=== PATIENT | female | born 1955 | race Caucasian/White ===

== ENCOUNTER 2017-03-12 12:48 | Outpatient (CLI) | payer OTHER | END 2017-03-12 12:49 | disposition home or self-care (01) | LOC: DTY/OP 12:48 | PROVIDERS: ATTEND Family Medicine | DX: E16.2 Hypoglycemia, unspecified (principal) | CPT/HCPCS: 97802 ==

== ENCOUNTER 2017-12-30 15:50 | Outpatient (CLI) | payer OTHER ==
[~2017-12-30 15:50] MED LIST: Iopamidol 370 76% 100 ML VIAL ONE
--- NOTE | 2017-12-30 19:08 | CT ---
CT ARTERIOGRAM HEAD WITH IV CONTRAST AND 3D MIP IMAGING CT BRAIN WITH AND WITHOUT IV CONTRAST: 12/30/17 HISTORY: Diplopia. Dizziness and headache. FINDINGS: There is no evidence of acute intracranial hemorrhage or infarct. Ventricles appear normal in size, s hape and position. There is no mass effect, shift of midline structures, or abnormal areas of contras t enhancement. The visualized paranasal sinuses remain well aerated. Good contrast flow throughout each internal carotid system and the vertebrobasilar system. [place] is intact. No focal stenosis, embolus, or aneurysm. IMPRESSION: No significant abnormalities are demonstrated. POS: [facility]
== END 2017-12-30 15:51 | disposition home or self-care (01) ==
LOC: SCSCT 15:50
PROVIDERS: ATTEND Family Medicine
DX: H53.2 Diplopia (principal)
CPT/HCPCS: 70496; 82565

== ENCOUNTER 2017-12-30 16:54 | Observation (INO) | payer OTHER ==
[2017-12-30] MEDS ORDERED: Proparacaine 0.5% Opth 15 ML BOT ONE (17:16)
[2017-12-30] MEDS ORDERED: Fluorescein Opthalmic Strip ONE (17:16)
[2017-12-30 17:45] LABS: #Basophils 0.1 thou/uL (0.0-0.2); #Eosinphils 0.2 thou/uL (0.0-0.7); #Lymphocytes 2.4 thou/uL (1.20-3.40); #Monocytes 0.6 thou/uL (0.11-0.59); %Basophils 0.7 % (0.0-1.0); %Eosinophils 2.2 % (0.0-10.0); %Lymphocytes 29.5 % (21.0-51.0); %Monocytes 7.8 % (0.0-10.0); %Neutrophils 59.8 % (42.0-75.0); Hemoglobin 15.8 g/dL (12.0-16.0); Mean Corpuscular HGB CONC 32.2 g/dL (32.0-36.0); Mean Corpuscular Hemoglobin 30.4 pg (27.0-31.0); Mean Corpuscular Volume 94.5 fL (78.0-98.0); Platelet Count 217 thou/uL (130-400); RBC Distribution Width 12.1 % (11.5-14.5); White Blood Cell (WBC) Count 8.3 thou/uL (4.8-10.8)
[2017-12-30 17:58] LABS: Anion Gap 16 mmol/L (10-20); BUN (Urea Nitrogen) 16 mg/dL (9.8-20.1); Calc. Creatinine Clearance 0 mL/min (70-130); Calcium 9.4 mg/dL (7.8-10.44); Carbon Dioxide 22 mmol/L (23-31); Chloride 105 mmol/L (98-107); Estimated GFR-MDRD 66; Glucose 94 mg/dL (80-115); Potassium 4.4 mmol/L (3.5-5.1); Sodium 139 mmol/L (136-145)
[2017-12-30] MEDS ORDERED: Ketorolac Tromethamine 30 MG/ML VIAL ONE (18:17)
[2017-12-30 21:24] VITALS: BMI 22.3
[2017-12-30] MEDS ORDERED: Artificial Tear Sol 15 ML BOT EA EYE PRN (21:27)
[2017-12-30] MEDS ORDERED: Temazepam 15 MG CAP PO SCH (21:30)
[2017-12-30] MEDS ORDERED: Diabetic Tussin 200 MG/10 ML UDCUP PO PRN (21:51)
[2017-12-30] MEDS: Acetaminophen 325 MG TAB PO PRN (21:51)
[2017-12-30] MEDS ORDERED: Melatonin 3 MG TAB PO SCH (22:00)
[2017-12-30] MEDS: Vancomycin HCl 1.25 GM in Sodium Chloride 0.9% 250 ML 250 ML IVPB SCH (22:41)
[2017-12-30] MEDS ORDERED: hydrALAZINE 20 MG/ML VIAL SLOW IVP PRN (23:10)
[2017-12-30] MEDS ORDERED: Ondansetron HCl/PF 4 MG/2 ML Vial IVP PRN (23:10)
[2017-12-30] MEDS ORDERED: Labetalol HCl 100 MG/20 ML VIAL SLOW IVP PRN (23:10)
[2017-12-30] MEDS ORDERED: Ondansetron ODT 4 MG TAB PO PRN (23:10)
[2017-12-31 05:26] LABS: #Eosinphils 0.3 thou/uL (0.0-0.7); #Lymphocytes 2.7 thou/uL (1.20-3.40); #Monocytes 0.7 thou/uL (0.11-0.59); #Neutrophils 3.9 thou/uL (1.40-6.50); %Basophils 0.4 % (0.0-1.0); %Eosinophils 4.3 % (0.0-10.0); %Lymphocytes 35.4 % (21.0-51.0); %Neutrophils 50.9 % (42.0-75.0); Hemoglobin 13.9 g/dL (12.0-16.0); Mean Corpuscular HGB CONC 32.1 g/dL (32.0-36.0); Mean Corpuscular Hemoglobin 31.3 pg (27.0-31.0); Mean Corpuscular Volume 97.7 fL (78.0-98.0); Mean Platelet Volume 7.8 fL (7.4-10.4); Platelet Count 220 thou/uL (130-400); RBC Distribution Width 11.6 % (11.5-14.5); Red Blood Cell (RBC) Count 4.43 mill/uL (4.20-5.40); White Blood Cell (WBC) Count 7.7 thou/uL (4.8-10.8)
[2017-12-31 05:34] LABS: Anion Gap 12 mmol/L (10-20); BUN (Urea Nitrogen) 20 mg/dL (9.8-20.1); Calc. Creatinine Clearance 68 mL/min (70-130); Calcium 8.8 mg/dL (7.8-10.44); Carbon Dioxide 23 mmol/L (23-31); Cardiac Risk 4.6 (Less than 4.5); Chloride 108 mmol/L (98-107); Cholesterol 165 mg/dl (< 200 Desired); Estimated GFR-MDRD 74; Glucose 95 mg/dL (80-115); HDL Cholesterol 36 mg/dL (>60 Neg Risk); LDL Cholesterol, Calculated 91 mg/dL; Potassium 4.2 mmol/L (3.5-5.1); Sodium 139 mmol/L (136-145); Triglycerides 192 mg/dL (Less than 150)
[2017-12-31] MEDS: Acetaminophen 325 MG TAB PO PRN (09:18)
[2017-12-31] MEDS: Enoxaparin Sodium 40 MG/0.4 ML SYRINGE SC SCH (09:19)
[2017-12-31] MEDS: Aspirin 81 mg Enteric Coated Tablet PO SCH (09:19)
[2017-12-31] MEDS: Estradiol 1 MG TAB PO SCH (09:19)
--- NOTE | 2017-12-31 10:35 | HP ---
CHIEF COMPLAINT: Double vision and pain in left eye. HISTORY OF PRESENT ILLNESS: This is a 62-year-old female with past medical history of neuropathy, hy perlipidemia, presenting with diplopia, which has been going on for the past 4 days prior to the day of admission. Per the patient, her diplopia started on Friday and she started to eventually develope d left-sided eye pain, which has been worsening. Patient saw her drafter civil (cad) and the patient had normal eye exams. At this point, the patient states that her left eye pain is about 10/10. She is not able to open her eye and the eye is teary. The patient states that she feels like the pain is on the back of the eye, and with movement, to the left side; patient always gets severe pain with movem ent. The patient also states that when she closed one eye and she looks an object she is able to vis ualize the object as a single object, but when she opens both eyes she sees double. Patient's sympto ms have been ongoing and states that now she feels like "something is really wrong." Patient also rubalcava s associated symptoms of cough, which started a couple of days ago. Per the , the patient has always had a cough, but now the cough has been worsened. Patient denies having any productive sputu m with her cough. The patient denies any headaches, shortness of breath, chest pain, palpitations, a bdominal pain. REVIEW OF SYSTEMS: Positive for diplopia and left eye pain. Otherwise as documented in the HPI, all other systems were reviewed and are negative. FAMILY HISTORY: Reviewed and noncontributory at today's visit. PAST MEDICAL HISTORY: Hypoglycemia, lower extremity neuropathy, hyperlipidemia. PAST SURGICAL HISTORY: Appendectomy, right knee replacement, tonsillectomy. PSYCHIATRIC HISTORY: Depression. SOCIAL HISTORY: Denies alcohol use. Denies illicit drug use. Denies any smoking history. ALLERGIES: No known drug allergies. CURRENT MEDICATIONS: 1. The patient is on estradiol. 2. Lipitor 40 mg. 3. Metoprolol 200 mg. PHYSICAL EXAMINATION: VITAL SIGNS: Blood pressure is 142/89, pulse of 78, respiratory rate of 16, temperature of 97.4, O2 saturation of 98. GENERAL: The patient is alert, oriented x3, speaking in full sentences, does not appear to be in any acute distress. HEENT: Normocephalic, atraumatic. Pupils are equally round and reactive to light. Extraocular move ments are intact. Patient does have diplopia when patient sees from both eyes. Patient has pain in the left eye when patient looks to the left. Patient has a teary left eye. NECK: Supple, full range of motion. Trachea midline. LUNGS: Clear to auscultation bilaterally. No wheezing, no rales, no rhonchi is appreciated. CARDIOVASCULAR: Positive S1 and S2, regular rate and rhythm. No murmurs, no gallops, no rubs apprec iated. ABDOMEN: Soft, nontender, nondistended. No peritoneal signs, no rigidity, no guarding. EXTREMITIES: 5/5 upper extremity strength and 5/5 lower extremity strength, good pulses bilaterally in the upper extremities and lower extremities. NEUROLOGIC: Cranial nerves II-XII grossly intact. No neurologic deficits noted. The patient has go od gait. SKIN: Warm, dry, and intact. No rashes seen. EKG: Patient has normal sinus rhythm. LABORATORY DATA: WBC 8.2, hemoglobin 16.8, hematocrit is 49.2, platelet count 217. Sodium 139, pota ssium 4.4, chloride 105, carbon dioxide of 22, anion gap of 16, BUN 16, creatinine 0.86, GFR 56, gluc ose is 94, calcium is 9.4. Triglycerides 102. Cholesterol 165. LDL is 91, HDL cholesterol 36, hear t disease risk ratio is 4.6. ASSESSMENT AND PLAN: This is a 62-year-old patient being admitted for, 1. Diplopia, etiology unclear at this time, but differential diagnosis includes multiple sclerosis, dry age-related macular disease, third nerve palsy, trochlear nerve palsy. At this point, we are goi ng to get MRI of the head, MRA of the neck, and we are also going to follow up on morning labs. 2. Left eye pain, etiology unclear, but differential diagnosis includes orbital cellulitis, acute an gle glaucoma. Per the patient, she recently saw her drafter civil (cad) and drafter civil (cad) measured her intraorbital eye pressure, which was negative, and patient's eye exam was negative. So, at this poi nt, orbital cellulitis is high on our differential. We have ordered MRI of the head. We will follow up on the results. We will start patient on vancomycin empirically, and we will give patient artifi cial eye drops and we will monitor the patient very closely. 3. Diplopia, rule out stroke. MRI has been ordered. We will follow up MRI to rule out any ischemic stroke. We started patient on aspirin and atorvastatin. We will monitor the patient closely. 4. History of depression, currently stable. We will monitor the patient. 5. Deep venous thrombosis and gastrointestinal prophylaxis.
[2017-12-31] MEDS: HYDROcodone/Acetaminophen 7.5/325 mg Tablet PO PRN ×3 (10:50→21:09)
[2017-12-31] MEDS ORDERED: Diazepam 5 MG TAB PO SCH (11:00)
[2017-12-31] MEDS ORDERED: Lorazepam 2 MG/ML VIAL SLOW IVP SCH (15:15)
--- NOTE | 2017-12-31 18:43 | PRG ---
DATE OF SERVICE: 12/31/2017 SUBJECTIVE: The patient continues to have persistent symptoms of pain in the left eye which she now identifies as being in the medial upper eye area about the 10-11 o'clock position. She also has some increased pain with left lateral gaze, but she does not have any pain in any other direction. She i s tender over the identified area slightly. There are no masses palpable there. She is also feeling a bit of tenderness in the left mastoid area and the patient does report that she does have a histor y of both shingles and Hudson's palsy in the past, concerning for possible inability to generate a reas onable immune response to the zoster virus. OBJECTIVE: NECK: Supple and symmetric. CARDIOVASCULAR: Regular rate and rhythm. LUNGS: Clear. NEUROLOGIC: She is otherwise fully intact. VITAL SIGNS: T-max today is 99.0, pulse 63, respirations 18, O2 sat 99% on room air, BP 133/68. IMAGING: Her MRI of the brain and MRA of the neck are both negative. Echocardiogram reveals an EF o f 50%-55% with grade I diastolic dysfunction. ASSESSMENT AND PLAN: I had a long conversation with the patient and her family regarding the workup and the findings. 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 She has been rec eiving vancomycin. We will continue with that and add acyclovir and a couple doses of Solu-Medrol, w hich I believe will be somewhat helpful. All of the questions were answered. I explained that we rubalcava ve as effectively is reasonably can be done ruled out mass lesion or space occupying lesion such as t umors or abscess. There is no evidence of aneurysm, strokes, or other ischemic events and no specifi c evidence of inflammatory changes. There are no lesions to suggest multiple sclerosis and it is lik rachid that optic neuritis would have been picked up on the initial exam by the final expense agent.
--- NOTE | 2017-12-31 18:50 | MRI ---
BRAIN MRI WITH AND WITHOUT CONTRAST: 12/31/17 INDICATION: Left eye pain. Diplopia. FINDINGS: There is normal sized ventricular system. No evidence of acute territorial infarction, intracranial m ass effect or midline shift. There is no pathologic intra-axial enhancement or evidence of significa nt intracranial hemorrhage susceptibility. There are a few punctate signal abnormality foci of the ce rebral hemispheres that may be related to minimal chronic ischemic disease. IMPRESSION: No evidence of acute intracranial abnormality. POS: [facility]
--- NOTE | 2017-12-31 18:59 | MRI ---
MR ANGIOGRAM OF THE NECK: 12/31/17 HISTORY: Pain. Double vision. COMPARISON: None. TECHNIQUE: MR angiogram of the neck is performed utilizing axial 2D [id number] imaging, coronal postcontrast imaging. Maximum intensity projection images are submitted for interpretation. FINDINGS: Axial 2D [id number] images demonstrate symmetric flow related signal in the cervical carotid and vertebral arteries. The right vertebral artery is dominant. Coronal postcontrast images demonstrate appropriate enhancement and luminal diameter of the aortic a rch. RIGHT CAROTID: There is appropriate enhancement and luminal diameter of the origin of the right carotid artery, broussard tid bifurcation, and internal carotid artery. No significant stenosis. LEFT CAROTID: There is appropriate enhancement and luminal diameter of the origin of the left carotid artery. The l eft common carotid, carotid bifurcation and internal carotid artery have appropriate enhancement and luminal diameter. Both cervical vertebral arteries are patent throughout their course in the neck. The right vertebral artery is dominant. Visualized subclavian arteries have appropriate enhancement and luminal diameter. IMPRESSION: Unremarkable MR angiogram of the neck. POS: [facility]
[2017-12-31] MEDS ORDERED: Atorvastatin Calcium 40 MG TAB PO SCH ×2 (21:00)
[2017-12-31] MEDS: Vancomycin HCl 1.25 GM in Sodium Chloride 0.9% 250 ML 250 ML IVPB SCH (21:13)
[2018-01-01] MEDS: HYDROcodone/Acetaminophen 7.5/325 mg Tablet PO PRN ×3 (00:45→10:40)
[2018-01-01] MEDS: Aspirin 81 mg Enteric Coated Tablet PO SCH (08:54)
[2018-01-01] MEDS: Estradiol 1 MG TAB PO SCH (08:54)
[2018-01-01] MEDS: Enoxaparin Sodium 40 MG/0.4 ML SYRINGE SC SCH (08:54)
--- NOTE | 2018-01-01 10:00 | PRG ---
DATE OF SERVICE: 01/01/2018. SUBJECTIVE: The patient reports she feels about the same this morning. She still has the double vision and some discomfort in the left eye. She reports that the pain in her eye really did not start until 2-1/2 days after the double vision started. She typically closes her left eye in order to have amount of vision. She can actually use either eye and have the same amount of vision. She just seems to be right eye dominant. PHYSICAL EXAMINATION: VITAL SIGNS: Temperature 98.1, pulse 70, respirations 18, O2 sat 94% on room air, blood pressure 101/60. GENERAL: Age appropriate female in no distress. She is awake, alert, oriented , pleasant and cooperative. HEENT: Reveals a normal gross appearing eyes. She can close her right eye and look directly forward and when she opens her left eye, her left eye will correct medially. HEART: Regular rate and rhythm. LUNGS: Clear. IMPRESSION AND PLAN: Diplopia with right medial upper limbus discomfort. Etiology is unclear. She has had a normal eye exam. She has had normal MRI/ MRA of the brain, sed rate, CRP are normal. Other labs are normal. Concerning for idiopathic orbital myositis and also concerning for possible viral etiology , she is on vancomycin, acyclovir, and had a couple of doses of Solu-Medrol last night, so far nothing seems to have changed the situation. I believe we have reasonably ruled out many of the concerning potential etiologies. Therefore, anticipate waiting on evaluation from Neurology today. If they agree , then we likely can discharge the patient for outpatient followup. She has a connection with neuroophthalmologist and she will be working on her and try to help arrange that type of follow up herself. GLADYS
[2018-01-01 11:56] VITALS: BP 92/55; TEMP 98.8
--- NOTE | 2018-01-02 15:26 | DIS ---
DATE OF ADMISSION: 12/30/2017 DATE OF DISCHARGE: 01/01/2018 DISCHARGE DIAGNOSES: 1. Diplopia. 2. Left eye pain. HISTORY: This patient is a 62-year-old female who presented via the emergency department. The patie nt reported having several days of diplopia in a couple of days of pain in her left eye. The patient had no antecedent injuries or changes to which this was attributable. She had no specific headache. She had seen her eye doctor and had a normal exam. The patient subsequently had observation admiss [facility]. HOSPITAL COURSE: The patient's stay persistent throughout her hospital stay; however, she did underg o an MRI of the brain, as well as an MRA and an echocardiogram. All of these essentially remained un remarkable with that. The patient was given doses of Solu-Medrol and started on acyclovir for possib le viral etiology. She had been started on vancomycin at the time of admission in order to help rule out any sort of cellulitic or to cover any cellulitic changes before it could be ruled out. Once th e patient had negative workup and failed to respond to steroids or antivirals, we awaiting a consulta tion by Neurology; however, patient had a contact with a neuro-mobile crane operator and she was working on getting that established as well. Later on the day of the discharge, I was contacted by nursing and told the patient had made arrangements for outpatient followup the following day of the neuro-ophtha lmologist and preferred not to stay and wait for our Neurology evaluation. Therefore, the patient wa s subsequently discharged. PHYSICAL EXAMINATION: VITAL SIGNS: On the day of discharge, temperature is 98.8, pulse 76, respirations 20, O2 sat 99% on room air, blood pressure 92/55. GENERAL: She was awake, alert, oriented, pleasant, cooperative. HEENT: The patient typically set with 1 eye closed in order to minimize the diplopia. She had sligh t tenderness to palpation in the left upper medial limbus area. There were no anatomic abnormalities identified or palpable on exam and she had no other neurological symptoms. It was felt the patient was likely suffering from ocular myositis. DISPOSITION: The patient is discharged and she is to have regular diet and her activity level is as tolerated. She will remain on acyclovir 800 mg p.o. q.i.d. and she will resume her usual metoprolol, estradiol, and atorvastatin. She is to follow up with Sonny Almanza and she is to follow up with the neuro-mobile crane operator and she had arranged for herself. She can return to the emergency department at any time.
== END 2018-01-01 13:12 | disposition home or self-care (01) ==
LOC: SCSER 16:54 → 2SE 17:00
PROVIDERS: ADMIT Family Medicine; ATTEND Family Medicine
DX: H53.2 Diplopia (principal); H57.12 Ocular pain, left eye; E78.5 Hyperlipidemia, unspecified; G62.9 Polyneuropathy, unspecified; F32.9 Major depressive disorder, single episode, unspecified; Z79.899 Other long term (current) drug therapy
CPT/HCPCS: 36415; 36416; 70496; 70549; 70553; 80048; 80061; 82565; 85025; 85652; 86140; 93005; 93306; 96365; 96366; 96367; 96372; 96374; 96375; 96376; G0378; J0133; J1650; J1885; J2060; J2920; J3370; J7050

== ENCOUNTER 2018-01-24 14:55 | Emergency (ER) | payer OTHER | END 2018-01-24 15:15 | disposition home or self-care (01) | LOC: SCSER 14:55 | DX: M79.631 Pain in right forearm (principal); E78.5 Hyperlipidemia, unspecified; F32.9 Major depressive disorder, single episode, unspecified; Z79.899 Other long term (current) drug therapy | CPT/HCPCS: 99283 ==

== ENCOUNTER 2018-10-14 14:57 | Outpatient (CLI) | payer MEDICARE ==
--- NOTE | 2018-10-14 15:19 | MMO ---
Bilateral MAMMO Bilat Screen [facility]DI. CLINICAL HISTORY: Patient is 63 years old and is seen for screening. The patient has the following family history of breast cancer: mother, at age 80. The patient has no personal history of cancer. VIEWS: The views performed were: bilateral craniocaudal and bilateral mediolateral oblique. FILMS COMPARED: The present examination has been compared to prior imaging studies performed at [facility] on 07/29/2016 and 01/30/2017, and at [facility] on 06/07/2015 and 06/14/2015. This study has been interpreted with the assistance of computer-aided detection. MAMMOGRAM FINDINGS: The breasts are heterogeneously dense, which could obscure a lesion on mammography. There is an equal density nodule measuring 7 millimeters with obscured margins seen in the central region of the right breast. In the left breast, there are no suspicious masses, calcifications or areas of architectural distortion. IMPRESSION: NODULE IN THE RIGHT BREAST REQUIRES ADDITIONAL EVALUATION. SPOT COMPRESSION IS RECOMMENDED. AN ULTRASOUND EXAM IS RECOMMENDED IF NEEDED. ACR BI-RADS Category 0 - Incomplete: Need additional imaging evaluation. [facility] will notify the patient of the need for additional imaging services. MAMMOGRAPHY NOTE: 1. A negative mammogram report should not delay a biopsy if a dominant of clinically suspicious mass is present. 2. Approximately 10% to 15% of breast cancers are not detected by mammography. 3. Adenosis and dense breasts may obscure an underlying neoplasm. Reported by: NORMA CALLOWAY MD Electonically Signed: [id number]
== END 2018-10-14 14:58 | disposition home or self-care (01) ==
LOC: SCSMAMMO 14:57
PROVIDERS: ATTEND Family Medicine
DX: Z12.31 Encounter for screening mammogram for malignant neoplasm of breast (principal); N63.10 Unspecified lump in the right breast, unspecified quadrant; Z80.3 Family history of malignant neoplasm of breast
CPT/HCPCS: 77067

== ENCOUNTER 2019-07-05 15:34 | Outpatient (CLI) | payer MEDICARE ==
--- NOTE | 2019-07-05 15:57 | RAD ---
TWO VIEWS RIGHT SHOULDER: DATE: 07/05/2019. COMPARISON: None. HISTORY: Scapular pain. FINDINGS: There is mild degenerative change involving the right AC joint. No widening of the AC or CC interspa ce. No acute fracture or dislocation. IMPRESSION: No acute osseous abnormality. POS: [facility]
--- NOTE | 2019-07-05 16:33 | RAD ---
PA AND LATERAL CHEST: History: Cough, back pain. FINDINGS: The heart size is normal. The aorta is tortuous. The lungs are well expanded without lobar consolidat ion, pneumothoraces, or pleural effusions. There are degenerative changes in the spine. IMPRESSION: No radiographic evidence of acute cardiopulmonary process. POS: [facility]
== END 2019-07-05 15:35 | disposition home or self-care (01) ==
LOC: SCSRAD 15:34
PROVIDERS: ATTEND Family Medicine
DX: M89.8X1 Other specified disorders of bone, shoulder (principal)
CPT/HCPCS: 71046

== ENCOUNTER 2019-08-27 12:29 | Outpatient (CLI) | payer MEDICARE, OTHER ==
--- NOTE | 2019-08-27 17:23 | MRI ---
MRI BRAIN WITH AND WITHOUT CONTRAST: DATE: 08/27/2019 HISTORY: 64-year-old female with TIA, family history of aneurysm, intractable headache, diplopia TECHNIQUE: Multiplanar, multisequence MRI of the brain obtained pre and post IV injection of gadolinium based co ntrast agent. FINDINGS: The ventricles are normal in size and configuration. There is no midline shift or any other evidence of mass effect. There is no extra-axial fluid collection. Single punctate focus of T2 hyperintensity in left frontal white matter consistent with minimal chronic ischemic white matter magdi nge, less than typical for this age group. There is otherwise no intra-axial signal abnormality, abnormal enhancement, mass, recent hemorrhage, or restricted diffusion. IMPRESSION: Normal
--- NOTE | 2019-08-27 17:25 | MRI ---
MRA magnetic resonance angiogram head noncontrast: 08/27/2019 HISTORY: 64-year-old female with intractable headache, TIA, and diplopia. Family history of intracranial aneur ysm. TECHNIQUE: 3-D [id number] MRA in multiple axial slabs through [place] of [place]. Source images and 3-D MIP re constructions evaluated. FINDINGS: Left vertebral artery is diminutive and terminates in PICA. The posterior and anterior circulation ap pear normal, with normal caliber. No evidence of aneurysm larger than 3 mm. Patent right posterior communicating artery. IMPRESSION: Normal
--- NOTE | 2019-08-27 17:31 | MRI ---
MRA magnetic resonance angiogram neck noncontrast: 08/27/2019 HISTORY: 64-year-old female with TIA, visual change diplopia, headache, family history of intracranial aneurys m TECHNIQUE: 3-D [id number] in multiple axial slabs from aortic arch to skull base. Source images and 3-D MIP reconstructions. FINDINGS: Proximal portions of bilateral vertebral arteries are difficult to visualize. Left vertebral arteries diminutive, and the right vertebral artery is dominant. Of the visualized portions, no focal high-grade stenosis identified. No significant stenosis of brachiocephalic, bilateral common carotid, or bilateral internal carotid, arteries. IMPRESSION: Negative
--- NOTE | 2019-08-27 17:37 | MRI ---
MRI neck with and without contrast: 08/27/2019 HISTORY: 64-year-old female with temporal arteritis M 31.6 FINDINGS: There is severe degenerative disc disease at C6-7. There is left-sided high-grade facet DJD at C4-5, resulting in mild grade 1 anterolisthesis of C4 on C5. No abnormal signal, abnormal enhancement, mass, or abnormal fluid collection, identified involving the parapharyngeal, perivertebral, retrophar yngeal, parotid, carotid, posterior cervical, visceral, submandibular, or systems project manager, spaces. No cervical lymphadenopathy identified. IMPRESSION: 1. Cervical spondylosis, including severe degenerative disc disease at C6-7. 2. Otherwise negative.
== END 2019-08-27 12:30 | disposition home or self-care (01) ==
LOC: SCSMRI 12:29
PROVIDERS: ATTEND Orthopaedic Surgery
DX: G45.9 Transient cerebral ischemic attack, unspecified (principal); H53.2 Diplopia; H47.393 Other disorders of optic disc, bilateral; R51 Headache; M31.6 Other giant cell arteritis; Z82.49 Family history of ischemic heart disease and other diseases of the circulatory system; M47.812 Spondylosis without myelopathy or radiculopathy, cervical region; M50.323 Other cervical disc degeneration at C6-C7 level
CPT/HCPCS: 70543; 70544; 70547; 70553; 82565

== ENCOUNTER 2022-02-04 08:25 | Outpatient (CLI) | payer MEDICARE, OTHER | END 2022-02-04 08:26 | disposition home or self-care (01) | LOC: SCSMRI 08:25 | PROVIDERS: ATTEND Ophthalmology | DX: M54.81 Occipital neuralgia (principal); M31.6 Other giant cell arteritis; G43.909 Migraine, unspecified, not intractable, without status migrainosus; M47.812 Spondylosis without myelopathy or radiculopathy, cervical region; M48.02 Spinal stenosis, cervical region; M50.30 Other cervical disc degeneration, unspecified cervical region | CPT/HCPCS: 72156; 82565 ==

== ENCOUNTER 2024-03-31 09:25 | Outpatient (CLI) | payer MEDICARE, OTHER ==
[2024-03-31 10:22] LABS: #Basophils 0.03 10x3/uL (0.0-0.2); %Basophils 0.5 % (0.0-1.0); %Eosinophils 5.2 % (0.0-10.0); %Lymphocytes 25.1 % (21.0-51.0); %Monocytes 6.5 % (0.0-10.0); %Neutrophils 62.2 % (42.0-75.0); Hematocrit 44.1 % (36.0-47.0); Hemoglobin 14.2 g/dL (12.0-16.0); Mean Corpuscular HGB CONC 32.2 g/dL (32.0-36.0); Mean Corpuscular Hemoglobin 32.3 pg (27.0-31.0); Mean Corpuscular Volume 100.2 fL (78.0-98.0); Mean Platelet Volume 9.5 fL (7.4-10.4); Platelet Count 255 10x3/uL (130-400); RBC Distribution Width 12.2 % (11.5-14.5)
[2024-03-31 10:40] LABS: Anion Gap 11 mmol/L (10-20); BUN (Urea Nitrogen) 17 mg/dL (9.8-20.1); Calc. Creatinine Clearance 0 mL/min (70-130); Calcium 8.9 mg/dL (7.8-10.44); Carbon Dioxide 27 mmol/L (23-31); Chloride 106 mmol/L (98-107); Estimated GFR 75; Glucose 98 mg/dL (80-115); Potassium 4.5 mmol/L (3.5-5.1); Sodium 139 mmol/L (136-145)
== END 2024-03-31 09:26 | disposition home or self-care (01) ==
LOC: LABBT 09:25
PROVIDERS: ATTEND Orthopaedic Surgery
DX: Z01.818 Encounter for other preprocedural examination (principal); G56.02 Carpal tunnel syndrome, left upper limb; G56.22 Lesion of ulnar nerve, left upper limb
CPT/HCPCS: 80048; 85025; 93005; 93010

== ENCOUNTER 2024-04-09 07:32 | Day surgery (SDC) | payer MEDICARE, OTHER ==
[2024-03-31 09:47] VITALS: BMI 22.3
[2024-04-09] MEDS ORDERED: fentaNYL 50 mcg/mL 1 mL Vial ONE (10:19)
[2024-04-09] MEDS ORDERED: PROPOFOL 20 ML ONE ×2 (10:19→11:50)
[2024-04-09] MEDS ORDERED: Lidocaine 1% PF 5 ML VIAL ONE (10:19)
[2024-04-09] MEDS ORDERED: Lidocaine 1% (PF) 30 ML VIAL ONE (10:38)
[2024-04-09] MEDS ORDERED: Propofol 500 MG/50 ML VIAL ONE (10:48)
[2024-04-09] MEDS ORDERED: CEFAZOLIN 2 GM VIAL ONE (10:57)
[2024-04-09] MEDS ORDERED: Dexamethasone 20 MG/5 ML VIAL ONE (11:25)
[2024-04-09] MEDS ORDERED: Ondansetron PF 4 MG/2 ML Vial ONE (11:25)
[2024-04-09] MEDS ORDERED: PHENYLEPHRINE-NS 100 MCG/ML 10 ML SYRINGE ONE (11:30)
[2024-04-09] MEDS ORDERED: ePHEDrine Sulfate 50 MG/10 ML VIAL ONE (11:56)
[2024-04-09] MEDS ORDERED: Ketorolac Tromethamine 30 MG (1 mL) VIAL ONE (13:27)
[2024-04-09] MEDS ORDERED: HYDROcodone/Acetaminophen 5/325 mg Tablet ONE (13:36)
== END 2024-04-09 14:09 | disposition home or self-care (01) ==
LOC: SDC 07:32
PROVIDERS: ATTEND Orthopaedic Surgery
PROC: 01N50ZZ Release Median Nerve, Open Approach (ICD-10-PCS; principal; 2024-04-09)
PROC: 01N40ZZ Release Ulnar Nerve, Open Approach (ICD-10-PCS; 2024-04-09)
DX: G56.02 Carpal tunnel syndrome, left upper limb (principal); G56.22 Lesion of ulnar nerve, left upper limb; G43.909 Migraine, unspecified, not intractable, without status migrainosus; I48.91 Unspecified atrial fibrillation; E78.5 Hyperlipidemia, unspecified; Z96.651 Presence of right artificial knee joint; Z78.0 Asymptomatic menopausal state; Z90.49 Acquired absence of other specified parts of digestive tract; Z90.89 Acquired absence of other organs; Z90.710 Acquired absence of both cervix and uterus; Z79.1 Long term (current) use of non-steroidal anti-inflammatories (NSAID); Z79.899 Other long term (current) drug therapy
CPT/HCPCS: 64718; 64721; A6223; J1100; J1885; J2405; J2704 ×2; J3010